=== PATIENT | male | born 2000 | race African-American/Black ===

== ENCOUNTER 2022-06-09 08:53 | Emergency (ER) | payer MEDICAID, OTHER ==
[~2022-06-09] VITALS: Ht 188 cm; Wt 54.0 kg
[2022-06-09] MEDS ORDERED: PANTOPRAZOLE SODIUM 40 MG/VIAL IV STA (11:12)
[2022-06-09] MEDS ORDERED: SODIUM CHLORIDE 0.9% 1,000 ML IV ONE (11:15)
[2022-06-09] MEDS ORDERED: METOCLOPRAMIDE HCL 10MG/2ML VIAL IV ONE (11:15)
[2022-06-09 11:25] VITALS: BP 115/74
[2022-06-09 12:01] LABS: BASOPHILS % 0.5 % (0.0-2.0); EOSINOPHILS % 0.3 % (0.0-5.0); HEMATOCRIT. 41.7 % (42.0-52.0); HEMOGLOBIN. 14.6 g/dL (14.0-18.0); LYMPHOCYTES % 21.3 % (20.0-50.0); MEAN CORPUSCULAR HEMOGLOBIN 33.5 pg (28.0-32.0); MEAN CORPUSCULAR VOLUME 95.9 fL (80.0-94.0); MEAN PLATELET VOLUME 8.8 fl (7.4-10.4); MONOCYTES % 5.5 % (2.0-8.0); NEUTROPHILS % 72.4 % (40.0-76.0); PLATELET 275 x1000/uL (130-400); RED BLOOD CELL COUNT 4.34 mill/uL (4.7-6.1); RED CELL DISTRIBUTION WIDTH 12.7 % (11.6-14.6)
[2022-06-09 12:03] LABS: CHLORIDE 94 mEq/L (98-107)
[2022-06-09 12:10] LABS: BETA HYDROXYBUTYRATE 0.3 mMol/L (0.0-0.3)
[2022-06-09] MEDS ORDERED: POTASSIUM CHLORIDE 20MEQ TABLET SR PO NR (12:15)
[2022-06-09] MEDS ORDERED: PROT40 MT (13:05)
[2022-06-09] MEDS ORDERED: METO5TAB86 MT (13:05)
== END 2022-06-09 13:05 | disposition home or self-care (01) ==
LOC: ER 08:53
DX: R11.2 Nausea with vomiting, unspecified (principal); F12.10 Cannabis abuse, uncomplicated
CPT/HCPCS: 36415; 80053; 82010; 82533; 82962; 85025; 96361; 96374; 96375; 99284; C9113; J2765; J7030